=== PATIENT | male | born 1980 | race Caucasian/White ===

== ENCOUNTER 2024-08-25 06:23 | Day surgery (SDC) | payer BC, SELFPAY | END 2024-08-25 14:56 | disposition home or self-care (01) | LOC: GI 06:23 | PROVIDERS: ATTENDING PHYSICIAN Internal Medicine | DX: Z12.11 Encounter for screening for malignant neoplasm of colon (principal); K57.30 Diverticulosis of large intestine without perforation or abscess without bleeding; K64.8 Other hemorrhoids; D12.4 Benign neoplasm of descending colon; K63.5 Polyp of colon; K63.9 Disease of intestine, unspecified; Z80.0 Family history of malignant neoplasm of digestive organs; Z83.719 Family history of colon polyps, unspecified | CPT/HCPCS: 45385; 45380; 88305 ==

== ENCOUNTER → 2024-11-13 16:03 | Outpatient (REF) | payer BC, SELFPAY | LOC: HWRAD 16:03 | PROVIDERS: ATTENDING PHYSICIAN Chiropractor | DX: M54.2 Cervicalgia (principal) | CPT/HCPCS: 72052 ==